=== PATIENT | female | born 2000 | race African-American/Black ===

== ENCOUNTER 2021-10-20 09:55 | Emergency (ER) | payer OTHER, SELFPAY ==
--- NOTE | ~2021-10-20 | CT_ITS ---
EXAMINATION: CT abdomen pelvis w con DATE: 10/20/2021 11:28 INDICATION: Nausea and vomiting TECHNIQUE: Computed tomography (CT) of the abdomen and pelvis was performed with 100 mL Omnipaque-350 intravenous contrast. Automated exposure control and iterative reconstruction technique were employe d. The dose-length product was 1418.56 mGy-cm. COMPARISON: None FINDINGS: Bases are clear. Heart size is normal. No pericardial or pleural effusion. Small region of focal hepa tic steatosis at the ligamentum teres. Gallbladder, spleen, pancreas, bilateral adrenal glands and ki dneys are normal. Bowels including the appendix are normal. Diffuse bladder wall thickening. Antevert ed uterus and bilateral adnexa are unremarkable. No free intraperitoneal gas or fluid. No pathologica lly enlarged abdominal or pelvic lymphadenopathy. Bones are unremarkable. IMPRESSION: 1. Diffuse bladder wall thickening which could be due to incomplete distention but differential inclu darcie cystitis. Correlate with urinalysis. Reviewed, dictated and finalized at location A. IMPRESSION: 1. Diffuse bladder wall thickening which could be due to incomplete distention but differential includes cystitis. Correlate with urinalysis.
[2021-10-20 10:05] VITALS: BP 136/89; PULSE 84; RESP 16; TEMP 36.3; O2SAT 100
[2021-10-20] MEDS: SODIUM CHLORIDE 0.9% IV 1,000 ML 999 ML IV CONT (10:37)
[2021-10-20 10:40] LABS: Basophils Absolute Auto 0.04 K/mm3 (0.00-0.10); Basophils Percent Auto 0.5 % (0.0-1.0); Eosinophils Absolute Auto 0.02 K/mm3 (0.02-0.50); Eosinophils Percent Auto 0.2 % (1.0-6.0); Hematocrit 32.1 % (35.0-49.0); Hemoglobin 10.3 g/dL (12.0-15.0); Immature Granulocyte Absolute 0.03 K/mm3 (0.00-0.00); Immature Granulocyte Percent A 0.3 % (0.0-0.0); Lymphocytes Absolute Auto 1.02 K/mm3 (1.10-4.50); Lymphocytes Percent Auto 11.7 % (18.0-42.0); Mean Corpuscular HGB Conc 32.1 g/dL (32.0-36.0); Mean Corpuscular Hemoglobin 27.7 pg (27.0-31.0); Mean Corpuscular Volume 86.3 fL (78.0-102.0); Mean Platelet Volume 10.2 fl (9.2-11.8); Monocytes Absolute Auto 0.26 K/mm3 (0.10-0.90); Neutrophils Absolute Auto 7.4 K/mm3 (1.7-7.2); Neutrophils Percent Auto 84.3 % (50.0-70.0); Platelet Count Result 250 K/mm3 (150-420); Red Blood Count 3.72 M/mm3 (4.20-5.40); Red Cell Distribution Width 15.1 % (11.6-14.4); White Blood Count 8.8 K/mm3 (4.8-10.8)
[2021-10-20] MEDS: PANTOPRAZOLE SODIUM IV 40 MG VIAL IV PUSH (10:40)
[2021-10-20] MEDS: ONDANSETRON INJ 4 MG/2 ML VIAL IV PUSH (10:41)
[2021-10-20 10:42] LABS: Add Urine Microscopic? YES; Appearance Urine Clear (Clear); Bilirubin Urine Negative (Negative); Blood Urine Negative (Negative); Color Urine Light Yellow (Yellow); Glucose Urine UA 3+ (Negative); Ketones Urine 3+ (Negative); Leukocyte Esterase Ur Negative (Negative); Nitrate Urine Negative (Negative); Protein Urine Negative (Negative); Specific Grav Ur 1.015 (1.010-1.020); Urobilinogen Urine 0.2 mg/dL (0.2-1.0)
[2021-10-20 10:47] LABS: Bacteria Urine 1+ /hpf; RBC Urine 0-2 /hpf (0-2); Squamous Epithelial Cell Urine Rare /hpf (Few); WBC Urine 0-3 /hpf (0-3)
[2021-10-20 10:56] LABS: Alanine Aminotransferase 15 U/L (14-59); Albumin Level 3.5 g/dL (3.4-5.0); Alkaline Phosphatase 52 U/L (46-116); Anion Gap 8 mmol/L (8-16); Aspartate Amino Transferase 13 U/L (15-37); Bilirubin,Total 0.4 mg/dL (0.00-1.00); Blood Urea Nitrogen 11 mg/dL (7-18); Calcium 8.7 mg/dL (8.5-10.1); Carbon Dioxide 24 mmol/L (21-32); Chloride 104 mmol/L (98-108); Estimated CRCL calculation 129 ml/min; Estimated Glomerular Filt Rate > 60; Glucose 274 mg/dL (70-99); Osmolality Calculated 291 mOsm/kg (285-295); Potassium 3.8 mmol/L (3.5-5.1); Sodium 136 mmol/L (136-145); Total Protein 7.5 g/dL (6.4-8.2)
[2021-10-20 11:00] VITALS: BP 122/70; PULSE 72; RESP 14; O2SAT 98
[2021-10-20 11:09] LABS: SPREG INTERNAL CONTROL Positive; Serum Qual hCG Negative
[2021-10-20 11:45] VITALS: BP 132/70; PULSE 70; RESP 14; O2SAT 100
--- NOTE | 2021-10-20 12:03 | ED.NAVMDI ---
HPI - Nausea/Vomiting/Diarrhea General Chief complaint: Nausea/Vomiting/Diarrhea Stated complaint: vomiting, cold sweats Time Seen by Provider: 10/20/21 09:57 Source: patient and RN notes reviewed Mode of arrival: ambulatory Limitations: no limitations History of Present Illness MD elicited complaint: nausea and abdominal pain Onset (ago): hour(s) (6) Description of vomiting: watery Associated nausea: Yes Associated abdominal pain: No Location of pain: none Pain scale (0-10): 0 Quality: cramping Exacerbating factors: none Relieving factors: none Associated symptoms: denies other symptoms Treatment prior to arrival: none Related Data Home Medications Medication Instructions Recorded Confirmed insulin lispro [Humalog U-100 See Protocol SUBCUT DIRECTED 10/20/21 10/20/21 Insulin] Allergies Allergy/AdvReac Type Severity Reaction Status Date / Time No Known Allergies Allergy Verified 10/20/21 10:12 Review of Systems Review of Systems: All systems reviewed & are unremarkable except as noted in HPI and below PMFSH Past Medical History Medical History Diabetes Gastroenteritis UTI (urinary tract infection) Exam Const: General: healthy appearing, no acute distress and alert Nutritional Appearance: obese Orientation/consciousness: patient oriented x3 HENMT: Head: normal to inspection Ears: external ears normal and TM's normal bilaterally General nose exam: Normal external nose present and Normal nares present Face and sinus: normal facial exam and sinuses nontender Mouth: Yes lip normal and Yes moist mucous membranes Eyes: Cornea: corneas normal Pupils: Equal, round and reactive pupils present EOM: EOMs intact bilaterally Neck: Neck: normal visual inspection and no lymphadenopathy Chest: Chest palpation & inspection: normal inspection of the chest Resp: Effort & Inspection: normal respiratory effort Auscultation: clear to auscultation bilaterally Cardio: Rate: regular rate Rhythm: regular rhythm GI: GI Palp: Yes Soft to palpation and No Tenderness to palpation present (GI) Auscultation: normal bowel sounds : General: Yes bladder normal to palpation and Yes no CVA tenderness Back/Spine/Pelvis: Back: no CVA tenderness Skin: General skin exam: normal color Neuro: General: patient oriented x3, moves all extremities, no meningeal signs, no focal motor deficits and CN's II-XI intact bilaterally Extrem: General: normal to inspection and no pedal edema Psych: Appearance: grossly normal and well kempt Mental Status: mental status grossly normal Affect: normal affect Attitude: cooperative Thought content: Yes Normal thought content present Course Course Emergency Course: Pt was stable in the ED. no acute GI loss. Reevaluation(s) Date: 10/20/21 Time: 10:53 Vital Signs Vital signs: Vital Signs Temperature 36.3 C L 10/20/21 10:05 Pulse Rate 84 10/20/21 10:05 Respiratory Rate 16 10/20/21 10:05 Blood Pressure 136/89 10/20/21 10:05 Pulse Oximetry 100 10/20/21 10:05 Temperature 36.3 C L 10/20/21 10:05 Pulse Rate 72 10/20/21 11:00 Respiratory Rate 14 10/20/21 11:00 Blood Pressure 122/70 10/20/21 11:00 Pulse Oximetry 98 10/20/21 11:00 MDM - Nausea/Vomiting/Diarrhea Differential Diagnosis Differential diagnosis: Likely gastroenteritis and dehydration Medical Records Attestation: I reviewed the patient's medical records. Lab Data Attestation: I reviewed the patient's lab results. Result diagrams: 10/20/21 10:36 10/20/21 10:36 Labs: Lab Results 10/20/21 10/20/21 10/20/21 Range/Units 10:36 10:36 10:36 WBC 8.8 (4.8-10.8) K/mm3 RBC 3.72 L (4.20-5.40) M/mm3 Hgb 10.3 L (12.0-15.0) g/dL Hct 32.1 L (35.0-49.0) % MCV 86.3 (78.0-102.0) fL MCH 27.7 (27.0-31.0) pg MCHC 32.1 (32.0-36.0) g/dL RDW 15.1 H (11.6-14.4) % Plt Count
[2021-10-20 12:50] VITALS: BP 108/60; PULSE 68; RESP 14; O2SAT 99
== END 2021-10-20 12:50 | disposition home or self-care (01) ==
PROVIDERS: Emergency Provider Emergency Medicine
DX: K52.9 Noninfective gastroenteritis and colitis, unspecified (principal); N39.0 Urinary tract infection, site not specified
CPT/HCPCS: 36415; 74177; 80053; 81001; 83605; 84703; 85025; 96361; 96374; 96375; 99284; C9113; J2405; J7030; Q9967

== ENCOUNTER 2024-05-09 07:39 | Emergency (ER) | payer SELFPAY ==
--- NOTE | ~2024-05-09 | CT_ITS ---
EXAMINATION: CT facial bones w con DATE: 05/09/2024 09:08 INDICATION: Facial swelling TECHNIQUE: Computed tomography (CT) of the facial bones and maxillofacial region was performed withou t intravenous contrast. Coronal reconstructions were obtained. Automated exposure control and iterati ve reconstruction technique were employed. The dose-length product was 461.37 mGy-cm. COMPARISON: None. FINDINGS: There are dental caries at the 2 posterior most right mandibular molars and likely also at the 2 most posterior left maxillary molars. There is an associated periapical erosion at the posterior most rig ht mandibular molar which extends through the lingular cortex of the mandible. Large organizing fluid collection with lobular enhancing margins consistent with an abscess extending posterior and inferio r to the right angle of the mandible which measures 4.2 x 2.6 x 4.9 cm. There is a small lobular exte nsion of the abscess and surrounding phlegmonous change into the swollen right masseter muscle. Promi nent surrounding cellulitis with stranding in skin thickening throughout the right submandibular nicky on. There are enlarged bilateral submandibular and jugular chain lymph nodes which are likely reactiv e. Orbits are normal. Mastoid air cells, middle ear cavities and paranasal sinuses are clear. Cervical v asculature is unremarkable. Visualized apices of lungs are clear. Likely positional mild reversal of the normal cervical lordosis. Cervical spine is otherwise unremarkable. IMPRESSION: 1. Dental caries with associated periapical erosion involving the posterior most right mandibular mol ar which erodes through the lingual cortex communicates with a 4.9 x 4.2 x 2.6 cm abscess in the soft tissues posterior and inferior to the angle of the right mandible including some extension into the right masseter muscle and prominent overlying cellulitis. Reviewed, dictated and finalized at location B. 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 Dental caries with associated periapical erosion involving the posterior mos t right mandibular molar which erodes through the lingual cortex communicates w ith a 4.9 x 4.2 x 2.6 cm abscess in the soft tissues posterior and inferior to the angle of the right mandible including some extension into the right massete r muscle and prominent overlying cellulitis.
[2024-05-09 07:48] VITALS: BP 155/93; PULSE 138; RESP 15; TEMP 36.8; O2SAT 100
--- NOTE | 2024-05-09 08:07 | ED.GENADULT ---
HPI - General Adult General Chief complaint: Dental/Oral Stated complaint: facial swelling Time Seen by Provider: 05/09/24 07:48 History of Present Illness HPI narrative: 23-year-old female presented to the emergency department for evaluation for right-sided facial swelling. Swelling started last week and patient did have follow-up with a oral surgeon a [place]. Patient was started on Augmentin. Patient states 2 days ago she started having worsening facial swelling. Related Data Home Medications Medication Instructions Recorded Confirmed insulin lispro 100 unit/mL See Protocol subcut DIRECTED 10/20/21 10/20/21 subcutaneous solution (Humalog U-100 Insulin) Allergies Allergy/AdvReac Type Severity Reaction Status Date / Time No Known Allergies Allergy Verified 05/09/24 11:03 Review of Systems Review of Systems: All systems reviewed & are unremarkable except as noted in HPI and below PMFSH Past Medical History Medical History Diabetes Gastroenteritis UTI (urinary tract infection) Exam Narrative: APPEARANCE: Well appearing, no pain, no distress, well-nourished. HEAD: Significant right-sided facial swelling EYES: PERRLA/EOMI, conjunctivae clear. NOSE: Normal no drainage EARS:TMS clear with good light reflex. THROAT: Pharynx clear, no exudate. NECK: Supple. No adenopathy, no masses. RESPIRATORY: Airway patent, respirations nonlabored. Clear to auscultation bilaterally, no rales, rhonchi, wheezing. CARDIOVASCULAR: Regular rate and rhythm without murmurs rubs or gallops. ABDOMINAL: Soft, nontender, nondistended, normal bowel sounds MUSCULOSKELETAL: Moves all extremities. Strength/ROM intact, No edema, No calf tenderness. NEURO: Alert. Cranial nerves II through XII intact. Good gait. Good coordination SKIN: Warm, dry. Normal Color Course Vital Signs Vital signs: Vital Signs Temperature 98.3 F 05/09/24 07:48 Pulse Rate 138 H 05/09/24 07:48 Respiratory Rate 15 05/09/24 07:48 Blood Pressure 155/93 H 05/09/24 07:48 Pulse Oximetry 100 05/09/24 07:48 Oxygen Delivery Room Air 05/09/24 07:48 Temperature 98.3 F 05/09/24 07:48 Pulse Rate 105 H 05/09/24 11:05 Respiratory Rate 18 05/09/24 11:05 Blood Pressure 159/90 H 05/09/24 11:05 Pulse Oximetry 100 05/09/24 11:05 Oxygen Delivery Room Air 05/09/24 07:48 Medical Decision Making MDM Narrative Medical decision making narrative: 53-year-old female presents emergency department for evaluation for worsening right-sided facial swelling. Patient is afebrile but does have a leukocytosis of 15.3 stable hemoglobin of 12.3. CMP has no significant abnormalities. Patient's CT does show a large right-sided facial abscess. I discussed the case with dr Bhavesh Nam, her maxillofacial surgeon that is following her care. He does admit to [facility] in [place], I discussed the case with the hospitalist at [facility] and patient was accepted for transfer. Patient was started on clindamycin but then switched to Unasyn. Patient was comfortable the plan for transfer to [facility]. Patient was well-appearing at time of transfer. Differential Diagnosis Differential Diagnosis: Facial abscess, dental abscess, cellulitis Vital Signs Vital Signs: Vital Signs Temperature 98.3 F 05/09/24 07:48 Pulse Rate 138 H 05/09/24 07:48 Respiratory Rate 15 05/09/24 07:48 Blood Pressure 155/93 H 05/09/24 07:48 Pulse Oximetry 100 05/09/24 07:48 Oxygen Delivery Room Air 05/09/24 07:48 Temperature 98.3 F 05/09/24 07:48 Pulse Rate 105 H 05/09/24 11:05 Respiratory Rate 18 05/09/24 11:05 Blood Pressure 159/90 H 05/09/24 11:05 Pulse Oximetry 100 05/09/24 11:05 Oxygen Delivery Room Air 05/09/24 07:48 Lab Data Lab results reviewed: Yes I reviewed the patient's lab results. 05/09/24 08:16 05/09/24 08:16 Labs: Lab Results 05/09/24 05/09/24 05/09/24 Range/Units 07:51 08:16 11:46 WBC 15.3 H (4.5-10.0) K/mm3 RBC 4.29 (4.2-5.4) M/mm3 Hgb 12.3 (12.0-15.0) g/dL Hct 37.9 (37.0-47.0) % MCV 88.3 (80-100) fl MCH 28.7 (26-34) pg MCHC 32.5 (32-36) g/dl RDW 15.0 H (11.5-14.5) % Plt Count 282 (150-375) k/mm3 MPV 10.5 H (7.4-10.4) fl Immature Gran % (Auto) 1.4 H (0-0.5) % Neut % (Auto) 79.4 H (45.5-73.1) % Lymph % (Auto) 5.5 L (18.3-44.2) % Ashe % (Auto) 12.9 H (2.6-8.5) % Eos % (Auto) 0.3 (0-4.4) % Baso % (Auto) 0.5 (0.2-1.2) % Lymph # (Auto) 0.85 L (0.9-3.2) K/mm3 Ashe # (Auto) 2.0 H (0.1-0.6) K/mm3 Eos # (Auto) 0.0 (0-0.3) K/mm3 Baso # (Auto) 0.1 (0.0-0.1) K/mm3 Abs Immat Gran (auto) 0.21 H (0.00-0.031) K/mm3 Absolute Neuts (auto) 12.2 H (1.3-6.7) K/mm3 Absolute Nucleated RBC 0.000 (0.0-0.012) K/mm3 Nucleated RBC % 0.0 (0.0-0.2) % PT 15.3 H (11.1-14.7) Seconds INR 1.2 APTT 27.7 (22.3-36.8) Seconds Sodium 130 L (137-145) mmol/L Potassium 4.5 (3.4-5.0) mmol/L Chloride 98 (98-107) mmol/L Carbon Dioxide 17 L (22-30) mmol/L Anion Gap 15 H (4-12) mmol/L BUN 11 (7-17) mg/dL Creatinine 0.60 L (0.7-1.0) mg/dL Estim Creat Clear Calc 127 ml/min Estimated GFR > 60 (59 - ) Glucose 438 H (65-110) mg/dL POC Capillary Glucose 443 H (65-105) mg/dl Calcium 9.3 (8.4-10.2) mg/dL Total Bilirubin 0.9 (0.2-1.3) mg/dL AST 20 (14-36) U/L ALT 12 (6-35) U/L Alkaline Phosphatase 158 H (38-126) U/L Total Protein 9.0 H (6.3-8.2) g/dL Albumin 4.3 (3.5-5.1) g/dL POC Urine HCG, Qual Negative (Negative) Imaging Data Radiologist's impression: Impressions Face CT 05/09/24 09:16 IMPRESSION: 1. Dental caries with associated periapical erosion involving the posterior most right mandibular molar which erodes through the lingual cortex communicates with a 4.9 x 4.2 x 2.6 cm abscess in the soft tissues posterior and inferior to the angle of the right mandible including some extension into the right masseter muscle and prominent overlying cellulitis. Critical Care Time Critical Care Time Critical Care Time: Yes Total Critical Care Time: 35 Discharge Plan Discharge Clinical Impression: Abscess of face Patient Disposition: Acute Care Hospital Condition: Serious Prescriptions: No Action insulin lispro [Humalog U-100 Insulin] 100 unit/mL solution See Protocol subcut DIRECTED Protocol: Insulin Corrective Low-Dose Condition: glucose < 70 mg/dl Dose/Route: Follow Hypoglycemia Order Condition: glucose 70-200 mg/dl Dose/Route: No additional insulin Condition: glucose 201-250 mg/dl Dose/Route: 2 units sub-Q Condition: glucose 251-300 mg/dl Dose/Route: 3 units sub-Q Condition: glucose 301-350 mg/dl Dose/Route: 4 units sub-Q Condition: glucose 351-400 mg/dl Dose/Route: 5 units sub-Q Condition: glucose > 400 mg/dl Dose/Route: Call MD Protocol Text: *No Correction Dose at Bedtime* sulfamethoxazole-trimethoprim [Bactrim DS] 800-160 mg tablet 1 tablet PO Q12H Qty: 20 0RF ondansetron 4 mg tablet,disintegrating 4 mg PO Q8H Qty: 14 0RF Follow-up/Referrals: PHYSICIAN,CONDENSER SETTER [Non-Staff] - Stand Alone Forms: Work/School Release IP
[2024-05-09 08:09] LABS: BEDSIDEPREGUCG Negative (Negative)
[2024-05-09 08:21] LABS: Basophils Absolute Auto 0.1 K/mm3 (0.0-0.1); Basophils Percent Auto 0.5 % (0.2-1.2); Eosinophils Percent Auto 0.3 % (0-4.4); Hematocrit 37.9 % (37.0-47.0); Hemoglobin 12.3 g/dL (12.0-15.0); Immature Granulocyte Absolute 0.21 K/mm3 (0.00-0.031); Immature Granulocyte Percent A 1.4 % (0-0.5); Lymphocytes Absolute Auto 0.85 K/mm3 (0.9-3.2); Lymphocytes Percent Auto 5.5 % (18.3-44.2); Mean Corpuscular HGB Conc 32.5 g/dl (32-36); Mean Corpuscular Hemoglobin 28.7 pg (26-34); Mean Corpuscular Volume 88.3 fl (80-100); Mean Platelet Volume 10.5 fl (7.4-10.4); Monocytes Percent Auto 12.9 % (2.6-8.5); Neutrophils Absolute Auto 12.2 K/mm3 (1.3-6.7); Neutrophils Percent Auto 79.4 % (45.5-73.1); Platelet Count Result 282 k/mm3 (150-375); Red Blood Count 4.29 M/mm3 (4.2-5.4); White Blood Count 15.3 K/mm3 (4.5-10.0)
[2024-05-09 08:37] LABS: Alanine Aminotransferase 12 U/L (6-35); Albumin Level 4.3 g/dL (3.5-5.1); Alkaline Phosphatase 158 U/L (38-126); Anion Gap 15 mmol/L (4-12); Aspartate Amino Transferase 20 U/L (14-36); Bilirubin,Total 0.9 mg/dL (0.2-1.3); Blood Urea Nitrogen 11 mg/dL (7-17); Calcium 9.3 mg/dL (8.4-10.2); Carbon Dioxide 17 mmol/L (22-30); Chloride 98 mmol/L (98-107); Estimated CRCL calculation 127 ml/min; Estimated Glomerular Filt Rate > 60; Glucose 438 mg/dL (65-110); Potassium 4.5 mmol/L (3.4-5.0); Sodium 130 mmol/L (137-145)
[2024-05-09 08:41] LABS: INR 1.2; Prothrombin Time 15.3 Seconds (11.1-14.7)
[2024-05-09 08:42] LABS: Partial Thromboplastin Time 27.7 Seconds (22.3-36.8)
--- NOTE | 2024-05-09 09:06 | PC.NURSE ---
pt in CT scan at this time.
[2024-05-09] MEDS: CLINDAMYCIN 600 MG/D5W 50 ML 600 MG/50 ML PIGGYBACK 100 MG IVPB (09:16)
[2024-05-09] MEDS: HYDROmorphone HCL INJ (*CRX) 1 MG/ML SYR 0.5 MG IV PUSH (09:51)
[2024-05-09 09:53] VITALS: BP 147/86; PULSE 110; RESP 16; O2SAT 98
[2024-05-09] MEDS: SODIUM CHLORIDE 0.9% IV 1,000 ML 999 ML IV CONT (10:09)
[2024-05-09] MEDS: AMPICILLIN SULB 3 GM/NS 100 ML 3 GM/100 ML VIAL IVPB (10:09)
[2024-05-09] MEDS: INSULIN HUMAN REGULAR (*BKC) 100 UNITS/ML IV PUSH (11:01)
[2024-05-09 11:05] VITALS: BP 159/90; PULSE 105; RESP 18; O2SAT 100
--- NOTE | 2024-05-09 11:29 | PC.NURSE ---
pt accepted at [facility]. accepting physician is Dr. Lyles. report called to ASHLEIGH Koch. Room number 7864 bed 2.
[2024-05-09 11:47] LABS: Glucose Point of Care 443 mg/dl (65-105)
== END 2024-05-09 12:12 | disposition short-term general hospital (02) ==
PROVIDERS: Emergency Provider Emergency Medicine
DX: L02.01 Cutaneous abscess of face (principal); E11.9 Type 2 diabetes mellitus without complications; Z79.4 Long term (current) use of insulin
CPT/HCPCS: 36415; 70487; 80053; 81025; 82948; 85025; 85610; 85730; 96365; 96367; 96375; 99285; J0295; J1171; J1815; J7030; Q9967